=== PATIENT | female | born 1950 | race Caucasian/White ===

== ENCOUNTER 2021-03-11 14:43 | Emergency (ER) | payer OTHER ==
--- OUTSIDE RECORDS SUMMARY | 2021-03-11 14:54 | XMS REPORT | Continuity of Care Document ---
:1950 Author Organization [facility] t Address [address] [place] [address] Care Team Providers Name Role Phone Unavailable Unavailable Unavailable Problems This patient has no known problems. Allergies, Adverse Reactions, Alerts Allergy Allergy Status Severity Reaction(s) Onset Inactive Treating Comm ents Source Name Type Date Date Clinician codeine Adverse Active sweats, [facility] Reaction night[facility] Medications Ordered Filled Start Stop Current Ordering Indication Dosage Frequency Signature Comments Components Source Medication Medication Date Date Medication? Clinician (SIG) Name Name Hydrocortis Hydrocortis Yes Marian (otc) [address] [facility] one one 5-02 [facility] applicatio [facility] - [facility]: n [facility] Meclizine Meclizine Yes Marian [address] [facility] HCl HCl 5-02 [facility] needed [facility] Triamcinolo Triamcinolo 2017-07 Yes Marian [address] [facility] ne ne 1-16 [facility] applicatio [facility] - Acetonide Acetonide 00:00: n to [facility] 00 [facility] Omeprazole Omeprazole Yes Marian [address] [facility] 7-26 [facility] Nystatin Nystatin Yes Marian [address] [facility] Valsartan Valsartan Yes Marian [address] [facility] Diazepam Diazepam Yes Marian [address] [facility] as [facility] Valium Valium Yes Marian 1/[address] [facility] tablet as [facility] - needed for [facility] Amlodipine Amlodipine Yes Marian [address] [facility] Besylate Besylate [facility] Keflex Keflex Yes [facility] Mobic Mobic Yes Marian [address] [facility] Atorvastati Atorvastati Yes Marian [address] [facility] n Calcium n Calcium [facility] Metoprolol Metoprolol Yes Marian [address] [facility] Succinate Succinate [facility] Omeprazole Omeprazole Yes Marian [address] [facility] Diovan Diovan Yes Marian [address] [facility] Procedures This patient has no known procedures. Encounters Start End Encounter Admission Attending Care Care Encounter Source Date/Time Date/Time Type Type Clinicians Facility Department ID 2020-08-03 2020-08-03 Outpatient [facility] [id number] [facility] 2020-03-22 2020-03-22 [facility] [id number] 2019-12-17 2019-12-17 [facility] [id number] [facility] 13:00:00 13:00:00 [facility] Out[facility] Clin[facility] 2019-11-12 2019-11-12 [facility] [id number] [facility] 10:28:00 10:28:00 [facility] Medicine [facility] Medicine Out[facility] Clin[facility] 2019-09-21 2019-09-21 [facility] [id number] [facility] 14:49:00 14:49:[address] [facility] 2019-07-31 2019-07-31 [facility] [id number] [facility] 11:00:00 11:00:00 [facility] 2019-07-29 2019-07-29 [facility] [id number] [facility] 13:26:00 13:26:00 [facility] 2019-04-22 2019-04-22 [facility] [id number] 09:40:00 09:40:00 [facility] 2018-11-07 2018-11-07 [facility] [id number] [facility] 00:16[facility]00 00:16:00 [facility] 2018-11-05 2018-11-05 [facility] [id number] [facility] 09:40:00 09:40:00 [facility] Results Test Description Test Time Test Comments Results Result Sourc e Comments SCR MAMM 2018-12-06 - SCR MAMM BILATERAL GARRICK BILATERAL GARRICK 3 CAD DIGITALBILATERAL CAD DIGITAL 09:08:25 DIGITAL SCREENING MAMMOGRAM 3D/2D WITH CAD: 11/27/2018CLINICAL: Asymptomatic. Digital breast tomosynthesis was performed in addition to routine CC and MLO views. Current mammographic images were evaluated by either a [employer] M-Vu or a [employer] ImageChecker CAD (computer aided detection system). Comparison is made to exam dated 06/12/2011 mammogram - [facility] [place]. The tissue of both breasts is heterogeneously dense. This may lower the sensitivity of mammography. There are nodular densities bilaterally that most likely represent benign fibroadenomas, cysts, or nodular breast tissue, however this must be confirmed with ultrasound. No suspicious mass, architectural distortion, malignant type calcification, or lymph node abnormality detected. IMPRESSION: INCOMPLETE ASSESSMENT: ADDITIONAL IMAGING EVALUATION RECOMMENDEDUltrasound recommended for further evaluation. Pooja Spring M.D. dm/:12/18/2018 09:08:25 Treating Engineer: Nancy Fofana MM, [facility] Mammographyletter sent: Additional Imaging Mammogram BI-RADS: 0 Indeterminate
[2021-03-11 16:36] LABS: Protime INR 1.03
[2021-03-11 16:37] LABS: Absolute Lymphocytes (CBC) 1.4 K/uL (0.7-4.9); Basophils % 0.6 % (0-1.3); Hematocrit 45.8 % (36.0-45.0); Lymphocytes % 29.2 % (15.3-44.8); MPV 9.6 fL (7.6-11.3); RBC Red Blood Cell Count 5.13 M/uL (3.86-4.86)
[2021-03-11 16:43] LABS: ALT/SGPT 27 U/L (12-78); AST/SGOT 23 U/L (15-37); Albumin 3.2 g/dL (3.4-5.0); Alkaline Phosphatase 104 U/L (45-117); BUN Blood Urea Nitrogen 13 mg/dL (7-18); Bicarbonate 27 mmol/L (21-32); Bilirubin Direct 0.1 mg/dL (0-0.2); Bilirubin Total 0.6 mg/dL (0.2-1.0); Glucose Level 131 mg/dL (74-106); Magnesium 2.3 mg/dL (1.8-2.4); NT PRO-BNP 80 pg/mL (<125); Potassium 3.3 mmol/L (3.5-5.1); Protein, Total 7.2 g/dL (6.4-8.2); Sodium Level 138 mmol/L (136-145); Troponin (Emerg Dept Use Only) < 0.02 ng/mL (0.0-0.045)
--- NOTE | 2021-03-11 17:44 | RAD REPORT ---
EXAM DESCRIPTION: Festus Single View03/11/2021 5:08 pm CLINICAL HISTORY: cough COMPARISON: none FINDINGS: Left base is hazy. Right lung appears clear. The heart is normal size IMPRESSION: Left base is hazy which may indicate mild pneumonia
[2021-03-11 20:36] LABS: SARS-COV-2 RT PCR NEGATIVE (NEGATIVE)
--- NOTE | 2021-03-11 21:45 | ER ---
Nurse's Notes [facility] Name: Brandie Shetty Age: 70 yrs Sex: Female : 1950 Arrival Date: 03/11/2021 Time: 14:44 Bed 12 Private MD: Adi Velarde V Diagnosis: Pneumonia in diseases classified elsewhere Presentation: 03/11 15:48 Chief complaint: Patient states: "I was taking a shower and all of a sudden I felt aa5 really weak all over and my back started hurting". Pt states "I've had a cold". Pt also c/o pain to right side of neck. Coronavirus screen: cough unrelated to allergies. Ebola Screen: Patient negative for fever greater than or equal to 101.5 degrees Fahrenheit, and additional compatible Ebola Virus Disease symptoms. Initial Sepsis Screen: Does the patient meet any 2 criteria? HR > 90 bpm. Does the patient have a suspected source of infection? No. Patient's initial sepsis screen is negative. Risk Assessment: Do you want to hurt yourself or someone else? Patient reports no desire to harm self or others. Onset of symptoms was March 2021. 15:48 Method Of Arrival: Ambulatory aa5 15:48 Acuity: AYLIN 3 aa5 Triage Assessment: 19:43 General: Appears in no apparent distress. Behavior is calm, cooperative, appropriate kg for age, quiet. Historical: - Allergies: 15:50 Codeine; aa5 - PMHx: 15:50 Hypertensive disorder; Irregular heart rate; aa5 - PSHx: 15:50 hysterectomy; angi knees; feet sx; left wrist; aa5 - Immunization history:: Client reports receiving the 2nd dose of the Covid vaccine. - Social history:: Smoking status: Patient denies any tobacco usage or history of. Screenin:42 Abuse screen: Denies threats or abuse. Denies injuries from another. Nutritional kg screening: No deficits noted. Tuberculosis screening: No symptoms or risk factors identified. Fall Risk None identified. Vital Signs: 15:48 BP 135 / 115; Pulse 105; Resp 18 S; Temp 98.3(TE); Pulse Ox 97% on R/A; Weight 95.25 kg aa5 (R); Height 5 ft. 8 in. (172.72 cm) (R); Pain 0/10; 19:42 BP 112 / 81; Pulse 81; Resp 20; Pulse Ox 100% on R/A; kg 21:27 BP 137 / 91; Pulse 67; Resp 18; Temp 98.7; Pulse Ox 99% on R/A; lp1 22:10 BP 117 / 71; Pulse 76; Resp 18; Pulse Ox 97% on R/A; oe 15:48 Body Mass Index 31.93 (95.25 kg, 172.72 cm) aa5 ED Course: 14:44 Patient arrived in ED. as 14:47 Adi Velarde MD is Private Physician. as 15:50 Triage completed. aa5 15:50 Arm band placed on. aa5 15:53 Ken Sepulveda PA is PHCP. cp 15:53 Ken Abreu MD is Attending Physician. cp 16:03 EKG completed in triage. Results shown to MD. aa5 16:03 Initial lab(s) drawn, by me, sent to lab. Inserted saline lock: 20 gauge in right aa5 antecubital area, using aseptic technique. Blood collected. 17:08 XRAY Chest (1 view) In Process Unspecified. EDMS 19:42 No provider procedures requiring assistance completed. kg 21:22 Zakia Bobby, RN is Primary Nurse. lp1 Administered Medications: 21:57 Drug: Zithromax (azithromycin) 500 mg Route: PO; bb Outcome: 21:44 Discharge ordered by . cp 22:13 Patient left the ED. bb Signatures: Dispatcher [employer] EDMS Janneth Green Brenda RN HECTOR bb Sandy Hamlin RN RN aa5 Zkaia Bobby, RN RN lp1 Ken Sepulveda PA PA cp Quique Storey Kristen, HECTOR RN kg Corrections: (The following items were deleted from the chart) 15:51 15:48 BP 135 / 115; Pulse 105bpm; Resp 18bpm; Spontaneous; Pulse Ox 97% RA; Temp 98.3F aa5 Temporal; aa5
--- NOTE | 2021-03-11 21:45 | EDPHYS ---
Physician Documentation [facility] Name: Brandie Shetty Age: 70 yrs Sex: Female : 1950 Arrival Date: 03/11/2021 Time: 14:44 Bed 12 Private MD: Adi Velarde V ED Physician Ken Abreu HPI: 03/11 21:35 This 70 yrs old Female presents to ER via Ambulatory with complaints of r/o cp covid. 21:35 The patient or guardian reports cough, that is intermittent, with no sputum. Onset: The cp symptoms/episode began/occurred 6 day(s) ago. 21:35 Associated signs and symptoms: Pertinent positives: chest pain, with cough, Pertinent cp negatives: diarrhea, fever, vomiting. Severity of symptoms: in the emergency department the symptoms have improved mildly. Patient reports having sudden onset general weakness and pain to back and neck while taking shower today. Historical: - Allergies: 15:50 Codeine; aa5 - PMHx: 15:50 Hypertensive disorder; Irregular heart rate; aa5 - PSHx: 15:50 hysterectomy; angi knees; feet sx; left wrist; aa5 - Immunization history:: Client reports receiving the 2nd dose of the Covid vaccine. - Social history:: Smoking status: Patient denies any tobacco usage or history of. ROS: 21:38 Constitutional: Negative for body aches, chills, fever, poor PO intake. cp 21:38 Eyes: Negative for injury, pain, redness, and discharge. cp 21:38 Cardiovascular: Positive for chest pain, with cough, Negative for edema, palpitations. 21:38 Respiratory: Positive for cough, with no reported sputum, Negative for shortness of breath, wheezing. 21:38 Abdomen/GI: Negative for abdominal pain, nausea, vomiting, and diarrhea. 21:38 Neck: Positive for pain at rest. cp 21:38 Back: Positive for pain at rest. cp 21:38 Neuro: Positive for weakness, Negative for altered mental status, headache, syncope. 21:38 All other systems are negative. Exam: 15:56 ECG was reviewed by the Attending Physician. cp 21:41 Head/Face: Normocephalic, atraumatic. cp 21:41 Constitutional: The patient appears in no acute distress, alert, awake, non-diaphoretic, non-toxic, well developed, well nourished, obese. 21:41 Eyes: Periorbital structures: appear normal, Conjunctiva: normal, no exudate, no injection, Sclera: no appreciated abnormality, Lids and lashes: appear normal, bilaterally. 21:41 ENT: External ear(s): are unremarkable, Nose: is normal, Mouth: Lips: moist, Oral mucosa: moist, Posterior pharynx: Airway: no evidence of obstruction, patent. 21:41 Neck: ROM/movement: is normal, is supple, no meningismus, no nuchal rigidity. 21:41 Chest/axilla: Inspection: normal, Palpation: is normal, no crepitus, no tenderness. 21:41 Cardiovascular: Rate: normal, Rhythm: regular, Edema: is not appreciated, JVD: is not appreciated. 21:41 Respiratory: the patient does not display signs of respiratory distress, Respirations: normal, no use of accessory muscles, no retractions, labored breathing, is not present, Breath sounds: bronchial sounds, that are mild, are heard in the left posterior lower lobe, decreased breath sounds, are not appreciated, stridor, is not appreciated, wheezing: is not appreciated. 21:41 Abdomen/GI: Exam negative for discomfort, distension, guarding, Inspection: abdomen appears normal. Vital Signs: 15:48 BP 135 / 115; Pulse 105; Resp 18 S; Temp 98.3(TE); Pulse Ox 97% on R/A; Weight 95.25 kg aa5 (R); Height 5 ft. 8 in. (172.72 cm) (R); Pain 0/10; 19:42 BP 112 / 81; Pulse 81; Resp 20; Pulse Ox 100% on R/A; kg 21:27 BP 137 / 91; Pulse 67; Resp 18; Temp 98.7; Pulse Ox 99% on R/A; lp1 22:10 BP 117 / 71; Pulse 76; Resp 18; Pulse Ox 97% on R/A; oe 15:48 Body Mass Index 31.93 (95.25 kg, 172.72 cm) aa5 MDM: 16:00 Differential diagnosis: bronchitis, flu, URI, pneumonia, COVID-19, acute [place]. cp 21:27 Patient medically screened. cp 21:43 Data reviewed: vital signs, nurses notes, lab test result(s), EKG, radiologic studies, cp plain films. 21:43 Test interpretation: by ED physician or midlevel provider: ECG, plain radiologic cp studies. 03/11 15:52 Order name: Basic Metabolic Panel; Complete Time: 21:25 03/11 21:26 Interpretation: Normal except: K 3.3; GLUC 131; GFR 47. 03/11 15:52 Order name: CBC with Diff; Complete Time: 21:25 cp 03/11 21:26 Interpretation: Normal except: RBC 5.13; HGB 15.3; HCT 45.8. 03/11 15:52 Order name: LFT's; Complete Time: 21:25 cp 03/11 21:26 Interpretation: Normal except: ALB 3.2; GLOB 4.0; A/G 0.8. 03/11 15:52 Order name: Magnesium; Complete Time: 21:25 03/11 15:52 Order name: NT PRO-BNP; Complete Time: 21:25 03/11 15:52 Order name: PT-INR; Complete Time: 21:25 03/11 15:52 Order name: Troponin (emerg Dept Use Only); Complete Time: 21:25 03/11 21:26 Interpretation: TROPED < 0.02; Reviewed. 03/11 15:52 Order name: XRAY Chest (1 view); Complete Time: 21:25 03/11 20:36 Order name: COVID-19/FLU A+B; Complete Time: 21:25 EDMA 03/11 20:46 Order name: RSV 03/11 20:46 Order name: Respiratory Syncytial Virus Ag; Complete Time: 21:25 EDMA 03/11 15:52 Order name: EKG; Complete Time: 15:53 03/11 15:52 Order name: Cardiac monitoring 03/11 15:52 Order name: EKG - Nurse/Tech 03/11 15:52 Order name: IV Saline Lock 03/11 15:52 Order name: Labs collected and sent 03/11 15:52 Order name: O2 Per Protocol 03/11 15:52 Order name: O2 Sat Monitoring 03/11 15:52 Order name: Urine Dipstick-Ancillary (obtain specimen) EC:56 Rate is 105 beats/min. Rhythm is regular. NV interval is normal. QRS interval is cp normal. QT interval is normal. T waves are Inverted in lead aVR. Interpreted by me. Reviewed by me. Administered Medications: 21:57 Drug: Zithromax (azithromycin) 500 mg Route: PO; bb Disposition Summary: 03/11/21 21:44 Discharge Ordered Location: Home cp Problem: new cp Symptoms: have improved cp Condition: Stable cp Diagnosis - Pneumonia in diseases classified elsewhere cp Followup: cp - With: Private Physician - When: 2 - 3 days - Reason: Worsening of condition Discharge Instructions: - Discharge Summary Sheet cp - Community-Acquired Pneumonia, Adult cp Forms: - Medication Reconciliation Form cp - Thank You Letter cp - Antibiotic Education cp - Prescription Opioid Use cp Prescriptions: - Zithromax Z-Gama 250 mg Oral Tablet - take 1 tablet by ORAL route as directed for 5 days Day 1 - take two (2) tablets cp one time. Day 2, 3, 4 , 5 take one (1) tablet once daily.; 6 tablet; Refills: 0, Product Selection Permitted - Tessalon Perles 100 mg Oral Capsule - take 2 capsule by ORAL route every 8 hours As needed; 30 capsule; Refills: 0, cp Product Selection Permitted Addendum: 03/13/2021 15:11 Co-signature as Attending Physician, Ken Abreu MD I agree with the assessment and c browning plan of care. Signatures: Dispatcher [employer] Ken Shay MD MD cha Ballard, Brenda, RN RN bb Sandy Hamlin RN RN aa5 Ken Sepulveda PA PA cp Corrections: (The following items were deleted from the chart) 03/11 19:54 15:53 CORONAVIRUS+MR.LAB.BRZ ordered. EDMS EDMS 19:55 15:53 Influenza Screen (A \T\ B)+BA.LAB.BRZ ordered. EDMS EDMS
[2021-03-11] MEDS ORDERED: AZITHROMYCIN 250 MG TAB ONE (22:17)
[2021-03-11 22:38] VITALS: TEMP 98.7
[2021-03-11 22:39] VITALS: BP 117/71; O2SAT 97
--- NOTE | 2021-03-13 17:00 | EKG ---
Test Date: 2021-03-11 Test Time: 15:53:02 Drink Waiter: MIRNA MEASUREMENT RESULTS: Intervals: Rate: 105 SC: 142 QRSD: 66 QT: 318 QTc: 420 Leonard: P: -2 SC: 142 QRS: 53 T: 38 INTERPRETIVE STATEMENTS: Sinus tachycardia Low voltage QRS Borderline ECG Compared to ECG 12/05/2006 11:11:21 Low QRS voltage now present Sinus rhythm no longer present Electronically Signed On 03-13-21 16:56:56 CDT by Frankie Prajapati
== END 2021-03-11 22:13 | disposition home or self-care (01) ==
LOC: ER 14:43
DX: J18.9 Pneumonia, unspecified organism (principal); I10 Essential (primary) hypertension; Z88.5 Allergy status to narcotic agent; Z20.822 Contact with and (suspected) exposure to COVID-19
CPT/HCPCS: 93005; 85025; 80048; 36415; 83735; 85610; 80076; 84484; 83880; 0240U; 87807; 71045; 99284